=== PATIENT | female | born 1975 | race Caucasian/White ===

== ENCOUNTER 2016-10-13 08:21 | Emergency (ER) | payer OTHER ==
[~2016-10-13] VITALS: Ht 172.7 cm; Wt 59.0 kg
[2016-10-13] MEDS ORDERED: Tetanus/Diptheria/Pertussis Vaccine 0.5ml Syr IM ONE (08:30)
[2016-10-13] MEDS ORDERED: Acetaminophen 500mg (ES) tab ORAL ONE (08:45)
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
[2016-10-13 09:25] LABS: BASOPHILS % (AUTO) 1.4 % (0.0-2.0); EOSINOPHILS % (AUTO) 2.3 % (0.0-3.0); LYMPHOCYTES % (AUTO) 21.3 % (20.0-45.0); MEAN CORPUSCULAR HEMOGLOBIN 32.4 PG (27.0-31.0); MEAN CORPUSCULAR VOLUME 98 FL (80-99); MEAN PLATELET VOLUME 5.9 FL (6.5-10.1); MONOCYTES % (AUTO) 9.3 % (1.0-10.0); NEUTROPHILS % (AUTO) 65.7 % (45.0-75.0); PLATELET COUNT 307 K/UL (150-450); RED BLOOD COUNT 4.49 M/UL (4.20-5.40); WHITE BLOOD COUNT 6.7 K/UL (4.8-10.8)
[2016-10-13 09:27] LABS: KETONES,URINE 1+ (NEGATIVE); LEUKOCYTE ESTERASE ,URINE 1+ (NEGATIVE); NITRITE,URINE NEGATIVE (NEGATIVE); PH,URINE 5 (4.5-8.0); PROTEIN,URINE 2+ (NEGATIVE); UROBILINOGEN,URINE NORMAL MG/DL (0.0-1.0)
[2016-10-13 09:32] VITALS: BP 124/88
[2016-10-13 09:37] LABS: APPEARANCE,URINE SLIGHTLY CLOUDY
[2016-10-13 09:38] LABS: ALANINE AMINOTRANSFERASE 11 U/L (3-33); ALBUMIN/GLOBULIN RATIO 1.1 (1.0-2.7); ANION GAP 14 (5-15); ASPARTATE AMINO TRANSFERASE 23 U/L (5-40); BACTERIA,URINE FEW /HPF; CARBON DIOXIDE 23 mEQ/L (20-30); CHLORIDE 101 mEQ/L (98-107); GLOMERULAR FILTRATION RATE > 60 mL/min (>60); HEMOLYSIS 137; LIPASE 37 U/L (< 60); MUCUS,URINE MANY /LPF (NONE/OCC); POTASSIUM 4.6 mEQ/L (3.4-4.9); SODIUM 138 mEQ/L (135-145); SQUAMOUS EPITHELIAL CELL,UR MODERATE /LPF (NONE/OCC); TOTAL PROTEIN 8.5 g/dL (6.6-8.7)
[2016-10-13] MEDS ORDERED: Bacitracin Oint UD TOPIC ONE ×2 (09:45→10:45)
--- NOTE | 2016-10-13 09:51 | Diagnostic Imaging Report ---
Indication: Pain Findings: 2 views of the left forearm were obtained. No acute fractures, malalignment, erosions or periostitis are identified. Bone mineralization is within normal limits. Soft tissues are unremarkable. Impression: Negative examination of the forearm.
--- NOTE | 2016-10-13 09:53 | Diagnostic Imaging Report ---
Indication: Chest pain Comparison: None A single view chest radiograph was obtained. Findings: Cardiomediastinal appearance is within normal limits for age. Pulmonary vascularity is appropriate. The diaphragmatic contour is smooth and costophrenic angles are sharp. No pleural effusions are identified. The bones are unremarkable. Impression: No acute findings
[2016-10-13 10:45] VITALS: BP 124/80
[2016-10-13 10:48] VITALS: BP 124/80
--- NOTE | 2016-10-16 18:46 | Cardiology Report ---
APPROVED REPORT EKG Measurement Heart [id number] Normal sinus rhythm Normal ECG
== END 2016-10-13 10:53 | disposition home or self-care (01) ==
LOC: EDBD 08:21 → EMR 08:35
DX: S50.812A Abrasion of left forearm, initial encounter (principal); V43.52XA Car driver injured in collision with other type car in traffic accident, initial encounter; Y92.410 Unspecified street and highway as the place of occurrence of the external cause; R60.0 Localized edema; Z23 Encounter for immunization
CPT/HCPCS: 29260; 36415; 71010; 80053; 81003; 83690; 84702; 85025; 86850; 86900; 86901; 90471; 90715; 93005; 99284